=== PATIENT | male | born 1970 | race Hispanic/Latino ===

== ENCOUNTER → 2021-04-10 | Outpatient (CLI) | payer MEDICARE | END | disposition home or self-care (01) | LOC: RAH 09:58 | PROVIDERS: ATTEND Internal Medicine Cardiovascular Disease | DX: Z01.810 Encounter for preprocedural cardiovascular examination (principal); I51.7 Cardiomegaly | CPT/HCPCS: 71045 ==

== ENCOUNTER 2023-04-04 16:00 | Inpatient (IN) | payer MEDICARE ==
[~2023-04-04] VITALS: Ht 177.8 cm; Wt 79.8 kg
[2023-04-04 09:09] VITALS: BP 127/53; PULSE 69; RESP 16
[2023-04-04 09:33] LABS: HEMATOCRIT 30.7 % (42-54); MEAN CORPUSCULAR HEMOGLOBIN 31.5 pg (27.0-33.0); MEAN CORPUSCULAR HGB CONC 32.6 g/dL (32.0-36.0); MEAN CORPUSCULAR VOLUME 96.8 fL (79-99); RED BLOOD CELL COUNT(AUTO) 3.17 MIL/uL (4.50-6.20); RED CELL DISTRIBUTION WIDTH 13.4 % (11.0-15.5)
[2023-04-04 09:43] LABS: CREATININE 5.6 mg/dL (0.5-1.5); POTASSIUM 4.7 mmol/L (3.5-5.1)
[2023-04-04 09:46] LABS: INR 0.94 (0.85-1.15); PROTHROMBIN TIME 10.9 SEC (9.6-11.6)
[2023-04-04 09:48] LABS: PARTIAL THROMBOPLASTIN TIME 40.2 SEC (26.3-35.5)
[~2023-04-04 16:00] MED LIST: AEC81 PO; ATOR10TA69 PO; BUME1TAB6 PO; CARV3.12 PO; DOCU100T PO; ERGO500093 PO; FERS325 PO; FOLI1TAB85 PO; HYDR100T27 PO; INSU100V12 SQ; LABETALOL PO; LINA5TAB PO; LOSA50TA64 PO; METO5TAB7 PO; MINO10TA3 PO; NUT.237L66 PO; SEMA1PEN3 SQ; XALA2.5OS OU
[2023-04-07] VITALS (24 sets, daily range): BP systolic 109–167; BP diastolic 34–103; PULSE 59–81; RESP 10–23; TEMP 98.1–98.7; O2SAT 95–97
[2023-04-07] MEDS ORDERED: 0.9% NACL 500ML IV.SOLN 500 ML IV ONE (09:37)
[2023-04-07] MEDS ORDERED: CEFAZOLIN SODIUM 2 GM VIAL ONE (09:37)
[2023-04-07 09:56] LABS: CREATININE 6.4 mg/dL (0.5-1.5); POTASSIUM 4.6 mmol/L (3.5-5.1)
[2023-04-07] MEDS ORDERED: SUCCINYLCHOLINE CHLORIDE 20 MG/ML 10 ML VIAL ONE (11:12)
[2023-04-07] MEDS ORDERED: DEXAMETHASONE SOD PHOSPHATE 10MG/ML 1ML VIAL ONE (11:12)
[2023-04-07] MEDS ORDERED: LIDOCAINE PF 100MG/5ML (2%) SYRINGE 5ML ONE ×2 (11:12→11:27)
[2023-04-07] MEDS ORDERED: GLYCOPYRROLATE 1 MG/5 ML SYRINGE ONE (11:13)
[2023-04-07] MEDS ORDERED: FENTANYL CITRATE PF 50 MCG/1 ML 2ML VIAL ONE (11:13)
[2023-04-07] MEDS ORDERED: NEOSTIGMINE 5MG/5ML SYR IV ONE (11:13)
[2023-04-07] MEDS ORDERED: ONDANSETRON 4MG INJ ONE (11:13)
[2023-04-07] MEDS ORDERED: PROPOFOL 10 MG/ML 20ML VIAL IV ONE (11:13)
[2023-04-07] MEDS ORDERED: ROCURONIUM 10MG/1ML SYR 10 MG/ML ML ONE (11:14)
[2023-04-07] MEDS ORDERED: ETOMIDATE 20MG VIAL ONE (11:15)
[2023-04-07] MEDS: INSULIN HUMULIN R 100 UNIT/ML 3ML SQ SCH ×3 (11:30→20:07)
[2023-04-07] MEDS ORDERED: DEXTROSE 50%-WATER 50 ML DISP.SYRIN IV PRN (11:30)
[2023-04-07] MEDS ORDERED: GLUCAGON 1MG KIT 1 MG ML IM PRN (11:30)
[2023-04-07] MEDS ORDERED: LACTULOSE 20 GM/30 ML UDCUP PO PRN (11:30)
[2023-04-07] MEDS ORDERED: ONDANSETRON 4MG INJ IVP PRN (11:30)
[2023-04-07] MEDS: NUT TX IMP RENAL FXN LAC REDUC PO SCH ×2 (12:00→17:00)
[2023-04-07 12:10] LABS: ABG BASE EXCESS -3.6 mmol/L (-2.0-3.0); ABG HCO3 21.9 mmol/L (21.0-28.0); ABG OXYGEN SATURATION 99.3 % (95.0-99.0); ABG PCO2 41 mmHg (35-48)
[2023-04-07] MEDS ORDERED: MEPERIDINE-PF 25 MG/ML SYG ONE (12:10)
[2023-04-07 13:23] LABS: AMYLASE,BODY FLUID 27 U/L; GLUCOSE,BODY FLUID 104 mg/dL (1-40); LIPASE,BODY FLUID 6 U/L
[2023-04-07 14:16] LABS: BODY FLUID RBC 1696 /cu. mm.; BODY FLUID WBC 50 /cu. mm.
[2023-04-07 14:47] LABS: APPEARANCE BODY FLUID CLOUDY (CLEAR); COLOR,BODY FLUID ORANGE (LT YELLOW); SPECIMENTYPE,BODY FLUID PERICARDIAL; TOTAL VOLUME,BODY FLUID 80 mL
[2023-04-07 15:36] LABS: PH, BODY FLUID 8
[2023-04-07 16:01] LABS: BF LYMPHOCYTE 17 %; BF MESOTHELIAL 2 %; BF OTHER CELLS 2
[2023-04-07] MEDS: TRAMADOL HCL 50 MG TABLET PO PRN ×2 (17:20→23:21)
[2023-04-07] MEDS: CEFAZOLIN SODIUM 2 GM VIAL IVPB SCH (18:17)
[2023-04-07] MEDS: LOSARTAN 50 MG TABLET PO SCH (20:06)
[2023-04-07] MEDS: CARVEDILOL 3.125 MG TABLET PO SCH (20:06)
[2023-04-07] MEDS: DOCUSATE SODIUM 100 MG CAP PO SCH (20:06)
[2023-04-07] MEDS: ASPIRIN 81 MG EC TAB PO SCH (20:06)
[2023-04-07] MEDS: ATORVASTATIN 10 MG TABLET PO SCH (20:06)
[2023-04-07] MEDS: ACETAMINOPHEN 325 MG TAB PO PRN (20:07)
[2023-04-07] MEDS: LATANOPROST 2.5 ML DROPS OU SCH (20:14)
[2023-04-07] MEDS ORDERED: HYDRALAZINE HCL 150 MG PO SCH (21:00)
[2023-04-07] MEDS: HYDRALAZINE 25MG TABLET PO SCH ×2 (21:18→21:35)
[2023-04-08] VITALS (39 sets, daily range): BP systolic 96–161; BP diastolic 36–78; PULSE 64–84; RESP 16–25; TEMP 97.9–99.1; O2SAT 94–95
[2023-04-08] MEDS: ACETAMINOPHEN 325 MG TAB PO PRN (02:01)
[2023-04-08] MEDS: CEFAZOLIN SODIUM 2 GM VIAL IVPB SCH ×2 (02:02→09:15)
[2023-04-08 04:41] LABS: HEMATOCRIT 30.5 % (42-54); MEAN CORPUSCULAR HEMOGLOBIN 31.6 pg (27.0-33.0); MEAN CORPUSCULAR HGB CONC 33.4 g/dL (32.0-36.0); MEAN CORPUSCULAR VOLUME 94.4 fL (79-99); RED BLOOD CELL COUNT(AUTO) 3.23 MIL/uL (4.50-6.20); WHITE BLOOD COUNT (AUTO) 10.5 K/uL (4.8-10.8)
[2023-04-08 04:58] LABS: CREATININE 6.9 mg/dL (0.5-1.5); POTASSIUM 4.6 mmol/L (3.5-5.1)
[2023-04-08] MEDS: INSULIN HUMULIN R 100 UNIT/ML 3ML SQ SCH ×4 (05:48→22:09)
[2023-04-08] MEDS: NUT TX IMP RENAL FXN LAC REDUC PO SCH ×3 (08:00→17:31)
[2023-04-08] MEDS: Rena-Vite Rx Tablet PO SCH (09:00)
[2023-04-08] MEDS ORDERED: NON-FORMULARY MEDICATION 1 EACH (Metolazone 5 MG) PO SCH (09:00)
[2023-04-08] MEDS: MINOXIDIL 10 MG PO SCH (09:00)
[2023-04-08] MEDS: HYDRALAZINE 25MG TABLET PO SCH ×2 (09:00→20:41)
[2023-04-08] MEDS: LOSARTAN 50 MG TABLET PO SCH ×3 (09:00→20:48)
[2023-04-08] MEDS ORDERED: NON-FORMULARY MEDICATION 1 EACH (Ferrous Sulfate 325 MG) PO SCH (09:00)
[2023-04-08] MEDS: DOCUSATE SODIUM 100 MG CAP PO SCH ×2 (09:15→20:43)
[2023-04-08] MEDS: LINAGLIPTIN 5 MG TABLET PO SCH (09:15)
[2023-04-08] MEDS: METOLAZONE 2.5 MG TABLET PO SCH (09:16)
[2023-04-08] MEDS: FERROUS SULFATE 325 MG TABLET.DR PO SCH (09:16)
[2023-04-08] MEDS: BUMETANIDE 1 MG TAB PO SCH (09:17)
[2023-04-08] MEDS: CARVEDILOL 3.125 MG TABLET PO SCH ×2 (09:17→20:44)
[2023-04-08] MEDS: HEPARIN 5,000 UNIT VIAL IJ SCH (17:24)
[2023-04-08] MEDS: LATANOPROST 2.5 ML DROPS OU SCH (20:40)
[2023-04-08] MEDS: ATORVASTATIN 10 MG TABLET PO SCH (20:40)
[2023-04-08] MEDS: ASPIRIN 81 MG EC TAB PO SCH (20:43)
[2023-04-08] MEDS: TRAMADOL HCL 50 MG TABLET PO PRN (20:44)
[2023-04-09] VITALS (9 sets, daily range): BP systolic 130–154; BP diastolic 36–84; PULSE 71–114; RESP 18–24; O2SAT 95
[2023-04-09 03:38] LABS: BASOPHILS % (AUTO) 0.2 % (0.0-5.0); EOSINOPHILS % (AUTO) 1.3 % (0.0-8.0); HEMATOCRIT 30.9 % (42-54); LYMPHOCYTES % (AUTO) 5.3 % (21.0-51.0); MEAN CORPUSCULAR HEMOGLOBIN 31.8 pg (27.0-33.0); MEAN CORPUSCULAR HGB CONC 34.6 g/dL (32.0-36.0); MEAN CORPUSCULAR VOLUME 91.7 fL (79-99); MONOCYTES % (AUTO) 9.8 % (3.0-13.0); NEUTROPHILS % (AUTO) 81.6 % (40.0-77.0); PLATELET COUNT (AUTO) 114 K/uL (130-400); RED BLOOD CELL COUNT(AUTO) 3.37 MIL/uL (4.50-6.20); RED CELL DISTRIBUTION WIDTH 13.1 % (11.0-15.5); WHITE BLOOD COUNT (AUTO) 8.5 K/uL (4.8-10.8)
[2023-04-09 04:09] LABS: CREATININE 5.3 mg/dL (0.5-1.5); MAGNESIUM 2.2 mg/dL (1.80-2.40); POTASSIUM 4.2 mmol/L (3.5-5.1); THYROID STIMULATING HORMONE 1.22 uIU/mL (0.36-3.74)
[2023-04-09] MEDS: TRAMADOL HCL 50 MG TABLET PO PRN ×3 (04:21→21:38)
[2023-04-09 04:26] LABS: HEPATITIS B SURFACE ANTIGEN Non-Reactive (Nonreactive)
[2023-04-09] MEDS: INSULIN HUMULIN R 100 UNIT/ML 3ML SQ SCH ×4 (05:43→21:45)
[2023-04-09] MEDS: LINAGLIPTIN 5 MG TABLET PO SCH (08:52)
[2023-04-09] MEDS: FERROUS SULFATE 325 MG TABLET.DR PO SCH (08:52)
[2023-04-09] MEDS: CARVEDILOL 3.125 MG TABLET PO SCH ×2 (08:53→21:38)
[2023-04-09] MEDS: HYDRALAZINE 25MG TABLET PO SCH ×2 (08:53→21:37)
[2023-04-09] MEDS: DOCUSATE SODIUM 100 MG CAP PO SCH ×2 (08:53→21:37)
[2023-04-09] MEDS: METOLAZONE 2.5 MG TABLET PO SCH (08:54)
[2023-04-09] MEDS: BUMETANIDE 1 MG TAB PO SCH (08:54)
[2023-04-09] MEDS: LOSARTAN 50 MG TABLET PO SCH ×2 (08:54→21:38)
[2023-04-09] MEDS: NUT TX IMP RENAL FXN LAC REDUC PO SCH ×3 (08:55→17:05)
[2023-04-09] MEDS: ACETAMINOPHEN 325 MG TAB PO PRN (08:57)
[2023-04-09] MEDS: MINOXIDIL 10 MG PO SCH (10:11)
[2023-04-09] MEDS: Rena-Vite Rx Tablet PO SCH (10:12)
[2023-04-09] MEDS: ASPIRIN 81 MG EC TAB PO SCH (21:36)
[2023-04-09] MEDS: ATORVASTATIN 10 MG TABLET PO SCH (21:38)
[2023-04-09] MEDS: LATANOPROST 2.5 ML DROPS OU SCH (21:45)
[2023-04-10] VITALS (18 sets, daily range): BP systolic 113–159; BP diastolic 51–89; PULSE 66–82; RESP 18–20; TEMP 98.7–98.8; O2SAT 95
[2023-04-10 03:43] LABS: HEMATOCRIT 29.2 % (42-54); MEAN CORPUSCULAR HEMOGLOBIN 31.7 pg (27.0-33.0); MEAN CORPUSCULAR HGB CONC 34.2 g/dL (32.0-36.0); MEAN CORPUSCULAR VOLUME 92.7 fL (79-99); RED BLOOD CELL COUNT(AUTO) 3.15 MIL/uL (4.50-6.20); RED CELL DISTRIBUTION WIDTH 13.2 % (11.0-15.5); WHITE BLOOD COUNT (AUTO) 11.3 K/uL (4.8-10.8)
[2023-04-10 04:00] LABS: CREATININE 6.8 mg/dL (0.5-1.5); POTASSIUM 4.6 mmol/L (3.5-5.1)
[2023-04-10 04:10] LABS: CRP QUANTITATIVE 203.5 mg/L (0.00-9.0)
[2023-04-10] MEDS: INSULIN HUMULIN R 100 UNIT/ML 3ML SQ SCH ×2 (05:52→11:30)
[2023-04-10] MEDS: NUT TX IMP RENAL FXN LAC REDUC PO SCH ×2 (08:00→13:30)
[2023-04-10] MEDS: FERROUS SULFATE 325 MG TABLET.DR PO SCH (08:17)
[2023-04-10] MEDS: LINAGLIPTIN 5 MG TABLET PO SCH (08:17)
[2023-04-10] MEDS: METOLAZONE 2.5 MG TABLET PO SCH (08:17)
[2023-04-10] MEDS: BUMETANIDE 1 MG TAB PO SCH (08:17)
[2023-04-10] MEDS: HYDRALAZINE 25MG TABLET PO SCH (08:18)
[2023-04-10] MEDS: TRAMADOL HCL 50 MG TABLET PO PRN ×2 (08:18→13:48)
[2023-04-10] MEDS: DOCUSATE SODIUM 100 MG CAP PO SCH (08:18)
[2023-04-10] MEDS: CARVEDILOL 3.125 MG TABLET PO SCH (08:19)
[2023-04-10] MEDS: LOSARTAN 50 MG TABLET PO SCH (08:21)
[2023-04-10] MEDS: MINOXIDIL 10 MG PO SCH (08:22)
[2023-04-10] MEDS: Rena-Vite Rx Tablet PO SCH (08:22)
[2023-04-10] MEDS ORDERED: HEPARIN 5,000 UNIT VIAL IV SCH (09:00)
[2023-04-10] MEDS: HEPARIN 5,000 UNIT VIAL IJ SCH (12:02)
[2023-04-10] MEDS ORDERED: LATANOPROST 2.5 ML DROPS OU SCH (21:00)
== END 2023-04-10 14:45 | disposition home or self-care (01) | DRG 314 ==
LOC: DAHIP 04-07 09:14 → 2CV 04-07 12:38 → 2AH 04-08 10:42
PROVIDERS: ADMIT Thoracic Surgery (Cardiothoracic Vascular Surgery); ATTEND Thoracic Surgery (Cardiothoracic Vascular Surgery)
PROC: 0W9D3ZZ Drainage of Pericardial Cavity, Percutaneous Approach (ICD-10-PCS; principal; 2023-04-07 11:57)
PROC: 5A1D70Z Performance of Urinary Filtration, Intermittent, Less than 6 Hours Per Day (ICD-10-PCS; 2023-04-08)
PROC: 5A1D70Z Performance of Urinary Filtration, Intermittent, Less than 6 Hours Per Day (ICD-10-PCS; 2023-04-10)
DX: I31.39 Other pericardial effusion (noninflammatory) (principal); N18.6 End stage renal disease; I50.30 Unspecified diastolic (congestive) heart failure; I13.2 Hypertensive heart and chronic kidney disease with heart failure and with stage 5 chronic kidney disease, or end stage renal disease; Z20.822 Contact with and (suspected) exposure to COVID-19; I31.4 Cardiac tamponade; E11.22 Type 2 diabetes mellitus with diabetic chronic kidney disease; D63.1 Anemia in chronic kidney disease; E11.319 Type 2 diabetes mellitus with unspecified diabetic retinopathy without macular edema; E11.51 Type 2 diabetes mellitus with diabetic peripheral angiopathy without gangrene; E11.65 Type 2 diabetes mellitus with hyperglycemia; E78.5 Hyperlipidemia, unspecified; Z99.2 Dependence on renal dialysis
CPT/HCPCS: 36415; 71045; 80048; 82150; 82435; 82803; 82945; 82947; 82948; 83605; 83615; 83690; 83735; 83986; 84132; 84157; 84295; 84443; 85018; 85025; 85027; 85610; 85730; 86140; 86658; 86704; 86706; 86850; 86900; 86901; 87071; 87076; 87116; 87205; 87206; 87210; 87340; 87426; 89051; 90935; 93005; 97039; A7048; G0378; J0330; J1100; J1644; J1815; J2001; J2175; J2405; J2704; J2710; J3010; J3490; J7030; J7040; A4215; A4221; A4222; A4223; A4649; A4663; A5120; A6219; A6260; C1713; J0690